=== PATIENT | male | born 1990 | race Caucasian/White ===

== ENCOUNTER 2018-09-28 19:55 | Emergency (ER) | payer MEDICAID ==
[~2018-09-28] VITALS: Ht 172.7 cm; Wt 82.0 kg
[2018-09-28] MEDS ORDERED: ONDANSETRON 4MG ODT PO ONE (20:30)
[2018-09-28] MEDS ORDERED: IBUPROFEN 600MG TABLET PO ONE (20:30)
[2018-09-28] MEDS ORDERED: ACETAMINOPHEN 325MG TABLET PO ONE (20:30)
[2018-09-28 21:00] LABS: BASOPHILS % 0.4 % (0.0-2.0); EOSINOPHILS % 0.4 % (0.0-5.0); HEMATOCRIT. 47.2 % (42.0-52.0); HEMOGLOBIN. 16.4 g/dL (14.0-18.0); LYMPHOCYTES % 7.4 % (20.0-50.0); MEAN CORPUSCULAR HEMOGLOBIN 29.6 pg (28.0-32.0); MEAN CORPUSCULAR VOLUME 85.3 fL (80.0-94.0); MEAN PLATELET VOLUME 9.9 fl (7.4-10.4); MONOCYTES % 5.3 % (2.0-8.0); NEUTROPHILS % 86.5 % (40.0-76.0); PLATELET 159 x1000/uL (130-400); RED BLOOD CELL COUNT 5.54 mill/uL (4.7-6.1); RED CELL DISTRIBUTION WIDTH 13.1 % (11.6-14.6)
[2018-09-28 21:06] LABS: CHLORIDE 104 mEq/L (98-107)
[2018-09-28] MEDS ORDERED: SODIUM CHLORIDE 0.9% 1,000 ML IV ONE (21:10)
[2018-09-28 22:42] LABS: CLARITY URINE CLEAR (CLEAR); COLOR URINE YELLOW (YELLOW); KETONES URINE NEGATIVE (NEGATIVE); LEUKOCYTE ESTERASE URINE NEGATIVE (NEGATIVE); NITRITE URINE NEGATIVE (NEGATIVE); OCCULT BLOOD URINE NEGATIVE (NEGATIVE); PH URINE 5.5 (4.5-8.0); PROTEIN URINE NEGATIVE (NEGATIVE); SPECIFIC GRAVITY URINE 1.019 (1.005-1.030); UROBILINOGEN URINE 0.2 E.U./dL (0.2-1.0)
[2018-09-29 02:10] VITALS: BP 118/76
== END 2018-09-29 02:22 | disposition home or self-care (01) ==
LOC: ER 21:59
DX: R50.9 Fever, unspecified (principal); R10.32 Left lower quadrant pain; J02.9 Acute pharyngitis, unspecified
CPT/HCPCS: 36415; 71045; 80053; 81003; 83690; 85025; 87070; 87430; 93005; 99284; J7030; Q0162